=== PATIENT | female | born 1990 | race Caucasian/White ===

== ENCOUNTER 2016-10-01 | Emergency (ER) | payer OTHER ==
[~2016-10-01] VITALS: Ht 165.1 cm; Wt 72.7 kg
[2016-10-01 00:07] VITALS: BP 138/83; TEMP 97.8
[2016-10-01 01:11] LABS: B-TYPE NATRIURETIC PEPTIDE 69 pg/mL (0-125); TROPONIN-I < 0.012 ng/mL (0.000-0.034)
[2016-10-01 01:57] LABS: BASO % 0.5 % (0.0-2.0); EOS # 0.3 (0.0-0.7); EOS % 5.3 % (0-4.0); GRAN # 2.8 (1.4-6.5); GRAN % 47.9 % (42.2-75.2); HEMATOCRIT 39.8 % (37.0-47.0); HEMOGLOBIN 13.6 g/dl (12.5-16.0); LYMPH # 2.3 (1.2-3.4); LYMPH % 39.1 % (20.0-51.0); MEAN CELL VOLUME 81 fl (80.0-100.0); MEAN CORPUSCULAR HEMOGLOBIN 28 pg (27.0-31.0); MEAN CORPUSCULAR HGB CONC 34 g/dl (33.0-37.0); MEAN PLATELET VOLUME 10.3 fl (7.4-10.4); MONO # 0.4 (0.1-0.6); PLATELET COUNT 283 K/mm3 (130-400); REDCELL DISTRIBUTION WIDTH-CV 11.9 % (11.5-14.5); WHITE BLOOD COUNT 5.8 K/mm3 (4.8-10.8)
[2016-10-01 02:03] LABS: ADJUSTED CALCIUM 9.6 mg/dL (8.4-10.2); ALANINE AMINOTRANSFERASE 51 U/L (9-52); ALBUMIN 3.9 gm/dL (3.5-5.0); ALKALINE PHOSPHATASE 129 U/L (50-136); ANION GAP 11 mmol/L (7-16); BILIRUBIN,TOTAL 0.5 mg/dL (0.0-1.0); BLOOD UREA NITROGEN 11 mg/dL (7-17); CALCIUM 9.5 mg/dL (8.4-10.2); CARBON DIOXIDE 24 mmol/L (22-30); CHLORIDE 103 mmol/L (98-107); GLUCOSE 120 mg/dL (74-106); LIPASE 248 U/L (23-300); POTASSIUM 3.3 mmol/L (3.4-5.0); SODIUM 138 mmol/L (137-145); TOTAL PROTEIN 6.9 gm/dL (6.4-8.2)
[2016-10-01] MEDS ORDERED: CARAFATE S1 GM/10 ML PO (02:38)
[2016-10-01 02:40] VITALS: PULSE 74
== END 2016-10-01 02:47 | disposition home or self-care (01) ==
LOC: COL.ER
PROVIDERS: Emergency Medicine; Nurse Practitioner
DX: K21.9 Gastro-esophageal reflux disease without esophagitis (principal); F41.9 Anxiety disorder, unspecified